=== PATIENT | female | born 1970 | race Caucasian/White ===

== ENCOUNTER 2018-04-15 05:12 | Day surgery (SDC) | payer OTHER ==
[~2018-04-15] VITALS: Ht 160 cm; Wt 78.0 kg
[2018-04-15] MEDS ORDERED: CETI10TA24 PO (06:26)
[2018-04-15] MEDS ORDERED: CYMBALTA PO (06:26)
[2018-04-15] MEDS ORDERED: LACTATED RINGERS 1,000 ML IV SCH (06:26)
[2018-04-15 06:27] VITALS: BP 115/74
[2018-04-15 06:38] LABS: HCG UR SG 1.025 (1.003-1.030)
[2018-04-15] MEDS ORDERED: CIPROFLOXACIN/HYDROCORTISONE EAR SUSP 0.2-1%, 10ML ONE (06:42)
[2018-04-15] MEDS ORDERED: MORPHINE SULFATE 4 MG/ML, 1ML IVPush PRN (07:00)
[2018-04-15] MEDS ORDERED: LABETALOL 5MG/ML, 20ML IV PRN (07:00)
[2018-04-15] MEDS ORDERED: ONDANSETRON ODT 8 MG ONE (07:00)
[2018-04-15] MEDS ORDERED: PROMETHAZINE 25 MG/ML, 1ML IV PRN (07:00)
[2018-04-15] MEDS ORDERED: OXYcodone 5 MG/5 ML ORAL.SOL UDC PO PRN (07:00)
[2018-04-15] MEDS ORDERED: MIDAZOLAM 1 MG/ML, 2ML IV PRN (07:00)
[2018-04-15] MEDS ORDERED: ALBUTEROL/IPRATROPIUM 2.5MG/0.5MG, 3 ML NPPB PRN (07:00)
[2018-04-15] MEDS ORDERED: FENTANYL PF 100 MCG/2ML IV PRN (07:00)
[2018-04-15] MEDS ORDERED: MEPERIDINE/PF 25MG/0.5ML IVPush PRN (07:00)
[2018-04-15] MEDS ORDERED: DIAZEPAM 5 MG/ML, 2ML IVPush PRN (07:00)
[2018-04-15] MEDS ORDERED: ACETAMINOPHEN 500 MG TABLET ONE (07:01)
[2018-04-15] MEDS ORDERED: KETOROLAC 30 MG/1 ML ONE (07:11)
[2018-04-15] MEDS ORDERED: MIDAZOLAM 1 MG/ML, 2ML ONE (07:11)
[2018-04-15] MEDS ORDERED: FENTANYL PF 100 MCG/2ML ONE (07:12)
[2018-04-15] MEDS ORDERED: PROPOFOL 10 MG/ML, 20ML ONE (07:24)
[2018-04-15] MEDS ORDERED: ONDANSETRON ODT 8 MG PO ONE (07:30)
[2018-04-15] MEDS ORDERED: ACETAMINOPHEN 500 MG TABLET PO ONE (07:30)
== END 2018-04-15 09:45 ==
LOC: OUT 05:12
PROVIDERS: ATTEND Otolaryngology
DX: H69.83 Other specified disorders of Eustachian tube, bilateral (principal)
CPT/HCPCS: 69436; 81025; J1885; J2250; J2704; J3010; J7120; Q0162